=== PATIENT | male | born 1950 | race Caucasian/White ===

== ENCOUNTER 2019-03-09 06:10 | Day surgery (SDC) | payer OTHER, MEDICAID ==
[2019-03-08 10:01] VITALS: BMI 26.4
[2019-03-09] VITALS (15 sets, daily range): BP systolic 95–172; BP diastolic 50–78; PULSE 58–72; RESP 15–32; Ht 157.5 cm; Wt 62.6 kg
[~2019-03-09] VITALS: Ht 157.5 cm; Wt 62.6 kg
[~2019-03-09 06:10] MED LIST: ASPI-903 PO; BENA20TA4 PO; GLYC2TAB21 PO; LINA5TAB PO; METF100010 PO
[2019-03-09] MEDS ORDERED: SOD CHLORIDE 0.9% 1,000 ML IV ONE (07:00)
[2019-03-09] MEDS ORDERED: VERAPAMIL 5 MG INJ ONE (07:42)
[2019-03-09] MEDS ORDERED: NITROGLYCERIN (IC) 100 MCG/ML INJ ONE (07:42)
[2019-03-09] MEDS ORDERED: IODIXANOL LOCM 100 ML BTL ONE (07:42)
[2019-03-09] MEDS ORDERED: LIDOCAINE 1% (MDV) 20 ML INJ ONE (07:42)
[2019-03-09] MEDS ORDERED: HEPARIN 1000 UNITS/ML 10 ML INJ ONE (07:44)
[2019-03-09] MEDS ORDERED: FENTAnyl 50 MCG/ML VIAL ONE (07:55)
[2019-03-09] MEDS ORDERED: MIDAZOLAM 1 MG/ML 2 ML INJ ONE (07:55)
[2019-03-09] MEDS ORDERED: ONDANSETRON 4 MG INJ IV PRN (09:30)
[2019-03-09] MEDS ORDERED: ACETAMINOPHEN 325 MG TAB PO PRN (09:30)
[2019-03-09] MEDS ORDERED: AL HYDROX/MG HYDROX/SIMETH 30 ML CUP PO PRN (09:30)
== END 2019-03-09 13:00 | disposition home or self-care (01) ==
LOC: SDS 06:10
PROVIDERS: ATTEND Internal Medicine Cardiovascular Disease
DX: I25.10 Atherosclerotic heart disease of native coronary artery without angina pectoris (principal); E78.5 Hyperlipidemia, unspecified; E11.9 Type 2 diabetes mellitus without complications; I10 Essential (primary) hypertension; I65.23 Occlusion and stenosis of bilateral carotid arteries
CPT/HCPCS: 80053; 82962; 85025; 85610; 85730; 93454; C1887; J1644; J2250; J3010; Q9967